=== PATIENT | male | born 1990 | race Caucasian/White ===

== ENCOUNTER 2017-10-22 19:43 | Emergency (ER) | payer OTHER ==
[2017-10-22 20:03] VITALS: BP 122/94; PULSE 76; TEMP 98.4; BMI 34.2
--- NOTE | 2017-10-22 20:11 | PDOC ---
History of Present Illness - General Chief Complaint: Pain Stated Complaint: ABDOMINAL PAIN Time Seen by Provider: 10/22/17 20:10 History Source: Patient Exam Limitations: No Limitations - History of Present Illness Initial Comments: 10/22/17 20:53 27M denies PMH presents to the ER with a 2 month history of vague RLQ pain radiating to the right groin and testicle. He states for the past 2 days the pain was constant where as before it was intermittent. He describes the pain like he was hit in the testicles. He gets occasional nausea when brushing his teeth but otherwise denies nausea vomiting fever chills chest pain or shortness of breath. He feels his heart skip a beat from time to time but he denies chest pain. He states he had a right inguinal hernia repair as a . He states sometimes the pain in his right testicle will radiate up the groin to the RLQ. He denies dysuria hematuria or discharge. He denies more than one sex partner but believes his ex girlfriend cheated on him. He denies having sex with men. He denies anal penetration. He denies pain on defecation. He was recently treated for GC/Chlamydia 2 weeks ago although he did not have any symptoms he was informed his ex girlfriend was treated so he sought treatment. He states he received a "shot" and pills. Past History - Travel Traveled outside of the country in the last 30 days: No Close contact w/someone who was outside of country & ill: No - Past Medical History Allergies/Adverse Reactions: Allergies Allergy/AdvReac Type Severity Reaction Status Date / Time No Known Allergies Allergy Verified 10/22/17 19:58 COPD: No - Immunization History Immunization Up to Date: No - Suicide/Smoking/Psychosocial Hx Have you smoked in the past 12 months: No Number of Cigarettes Smoked Daily: 0 Information on smoking cessation initiated: No Hx Alcohol Use: No Drug/Substance Use Hx: No Substance Use Type: Marijuana (daily) Review of Systems - Review of Systems Constitutional: No: Symptoms Reported, See HPI, Chills, Diaphoresis, Fever, Loss of Appetite, Malaise, Night Sweats, Weakness, Weight Stable, Unintentional Wgt. Loss, Unexplained wgt Loss, Other HEENTM: No: Symptoms Reported, See HPI, Eye Pain, Blurred Vision, Tearing, Recent change in vision, Double Vision, Cataracts, Ear Pain, Ocular Prothesis, Ear Discharge, Nose Pain, Nose Congestion, Tinnitus, Nose Bleeding, Hearing Loss , Throat Pain, Throat Swelling, Mouth Pain, Dental Problems, Difficulty Swallowing, Mouth Swelling, Other Respiratory: No: Symptoms reported, See HPI, Cough, Orthopnea, Shortness of Breath, SOB with Exertion, SOB at Rest, Stridor, Wheezing, Productive cough, Hemoptysis, Other Cardiac (ROS): Yes: Other (occasional heart skipping a beat) ABD/GI: Yes: See HPI : Yes: See HPI, Testicular Pain (right sided). No: Burning, Dysuria, Discharge, Frequency, Urgency, Testicular Mass Musculoskeletal: No: Symptoms Reported, See HPI, Back Pain, Gout, Joint Pain, Joint Swelling, Muscle Pain, Muscle Weakness, Neck Pain, Joint Stiffness, Other Integumentary: No: Symptoms Reported, See HPI, Bruising, Change in Color, Change in Hair/Nails, Dryness, Erythema, Flushing, Lesions, Lumps, Pallor, Pruritus, Rash, Sweating, Other Neurological: No: Symptoms reported, See HPI, Headache, Numbness, Paresthesia, Pre-Existing Deficit, Seizure, Tingling, Tremors, Weakness, Unsteady Gait, Ataxia, Dizziness, Other Psychiatric: No: Anxiety, Depression, Frequent Crying, Stressors, Sleep Pattern Change, Emotional Problems, Mood Swings, Change in Appetite, Other Endocrine: No: Symptoms Reported, See HPI, Excessive Sweating, Flushing, Intolerance to Cold, Intolerance to Heat, Increased Hunger, Increased Thirst, Increased Urine, Unexplained Weight Gain, Unexplained Weight Loss, Change in Weight, Other Hematologic/Lymphatic: No: Symptoms Reported, See HPI, Anemia, Blood Clots, Easy Bleeding, Easy Bruising, Bleeding Diathesis, Lymph Node Abnormalities, Swollen Glands, Other *Physical Exam - Vital Signs Last Vital Signs Temp Pulse Resp BP Pulse Ox 98.4 F 76 16 122/94 100 10/22/17 19:58 10/22/17 19:58 10/22/17 19:58 10/22/17 19:58 10/22/17 19:58 - Physical Exam General Appearance: Yes: Nourished, Appropriately Dressed. No: Apparent Distress HEENT: positive: EOMI, HARJINDER, Normal ENT Inspection Neck: positive: Trachea midline, Supple Respiratory/Chest: positive: Lungs Clear, Normal Breath Sounds. negative: Chest Tender, Respiratory Distress Cardiovascular: positive: Regular Rhythm, Regular Rate, S1, S2. negative: Edema , JVD, Murmur Gastrointestinal/Abdominal: positive: Soft. negative: Tender, Tenderness, Hernia, Mass Male Genitalia: positive: normal genitalia, other (slightly erythematous at the urethral orifice. no inguinal hernia appreciated but tender when doing the exam when sticking finger into the ring.). negative: discharge, testicular tenderness, epididymus tender Musculoskeletal: negative: CVA Tenderness Extremity: positive: Normal Capillary Refill Integumentary: positive: Dry, Warm Neurologic: positive: tight cooper II-XII NML intact, Fully Oriented, Alert, Normal Mood/ Affect, Normal Response, Motor Strength 07/02 ED Treatment Course - LABORATORY CBC & Chemistry Diagram: 10/22/17 20:30 10/22/17 20:30 Medical Decision Making - Medical Decision Making 10/22/17 21:23 27M with no PMH presents to the ER with right groin pain affecting his RLQ and right testicle. Concern for UTI vs epydidymitis vs inguinal hernia Will do: CBC CMP Mg Lipase UA UCx GC/Chlamydia IVF Reassess *DC/Admit/Observation/Transfer Diagnosis at time of Disposition: Testicular pain, right - Discharge Dispostion Disposition: HOME Condition at time of disposition: Stable Decision to Admit order: No - Referrals Referrals: Abraham Oh MD., MD [Staff Physician] - Call tomorrow - Patient Instructions Printed Discharge Instructions: DI for Testicular Pain, Testicular Self-Exam ( ALEXIS) Additional Instructions: if your pain gets worse go back to the nearest emergency room see the urologist and call for an appointment. If you start to have nausea vomiting fever or chills go to the nearest emergency room. Take Motrin or advil 600mg by mouth every 6 hours as needed for pain. If you need a primary care doctor you can come see me at [address] [place] [address] call [phone] and make an appointment with Dr. Diaz i see patients every from 1-430. - Post Discharge Activity
--- NOTE | 2017-10-22 20:15 | PDOC ---
Attending Attestation - HPI HPI: 10/22/17 22:20 The patient is a 27 year old male, with no significant past medical history, who presents to the emergency department with, 2 months of right lower quadrant and right groin pain. As per patient, his pain initially was intermittent then over the past 2 days it has become progressively constant. As per patient, he was recently treated for Chlamydia 2 weeks ago. He reports to have been asymptomatic but, was made aware that his previous sexual partner was tested positive. He reports since taking the treatment his pain has become more constant. He denies any recent fevers, chills, headache or dizziness. He denies any recent nausea, vomit, diarrhea or constipation. He denies any recent chest pain or shortness of breath. He denies any recent dysuria, frequency, urgency or hematuria. Allergies: NKA - Physicial Exam PE: 10/22/17 22:21 GENERAL: Awake, alert, and fully oriented, in no acute distress HEAD: No signs of trauma NECK: Normal ROM, supple, no lymphadenopathy, JVD, or masses LUNGS: Breath sounds equal, clear to auscultation bilaterally. No wheezes, and no crackles HEART: Regular rate and rhythm, normal S1 and S2, no murmurs, rubs or gallops +ABDOMEN: Gassy bowel sounds. Soft, nontender. No guarding, no rebound. No masses EXTREMITIES: Normal range of motion, no edema. No clubbing or cyanosis. No cords, erythema, or tenderness NEUROLOGICAL: Cranial nerves II through XII grossly intact. Normal speech, normal gait SKIN: Warm, Dry, normal turgor, no rashes or lesions noted. <Marco Higginbotham - Last Filed: 10/22/17 22:20> - Resident Resident Name: Janes Diaz - ED Attending Attestation I have performed the following: I have examined & evaluated the patient, The case was reviewed & discussed with the resident, I agree w/resident's findings & plan - HPI HPI: 10/22/17 20:45 Pt comes with - Medical Decision Making 10/22/17 22:41 Pt states that he has right testicle pain ongoing for couple weeks. He has no to Patient Name: JACQUELINE COLON THIS IS A PRELIMINARY REPORT FROM [facility] DATE OF SERVICE: 2017-10-22 21:29:31 IMAGES: 54 EXAM: Bilateral scrotal sonogram. Clinical indication: Testicular pain. Rule out inguinal hernia. There are no prior studies available for comparison. Findings: The right testicle measures 4.3 x 3.2 x 2.0 cm in diameter and has an unremarkable sonographic appearance without focal abnormality. There is normal color Doppler flow within the right testicle. There is a small 0.5 cm simple epididymal cyst within the head of the right epididymis. The right epididymis is otherwise unremarkable. There is trace of right-sided hydrocele. There is some sonographically normal-appearing lymph nodes within the right inguinal region. The left testicle measures 4.8 x 3.5 x 2.1 cm in diameter and has an unremarkable sonographic appearance without focal abnormality. Color Doppler flow is normal within the left testicle. The left epididymis is within normal limits. There is a tiny left-sided hydrocele. The sales warehouse driver has not commented on the presence or absence of inguinal hernia. There are no images to suggest that evaluation was performed for inguinal hernia. It should be noted that a sonogram for evaluation of hernia is separate from a scrotal sonogram. Impression: 1. Tiny bilateral hydroceles. Otherwise unremarkable bilateral scrotal sonogram. 2. There are no images to suggest evaluation was performed for inguinal hernias. It should be noted that a sonogram for evaluation of hernias is usually performed separate from a scrotal sonogram. THIS DOCUMENT HAS BEEN ELECTRONICALLY SIGNEDrsion; he has no 10/23/17 00:32 Pt has no testicular pain; no torsion; he has no ingunal hernia that I could appreciate. Pt was reassured and asked to follow with urology as an outpatient. He understands that he can return for worsening pain. <Teresa Obregon - Last Filed: 10/23/17 00:32> Attestations - Attestations 10/22/17 22:21 Documentation prepared by Marco Higginbotham, acting as medical assistant ob gyn for Teresa Obregon MD. <Marco Higginbotham - Last Filed: 10/22/17 22:20>
[2017-10-22] MEDS ORDERED: SODIUM CHLORIDE 1,000 ML IV STA (20:16)
[2017-10-22 20:38] LABS: BASO % 0.9 % (0-2.0); EOS % 1.3 % (0-4.5); HEMATOCRIT 44.1 % (35.4-49); HEMOGLOBIN 14.9 GM/dL (11.7-16.9); LYMPH % 24.3 % (8-40); MCH 31.3 pg (25.7-33.7); MCHC 33.7 g/dl (32.0-35.9); MEAN CELL VOLUME 92.8 fl (80-96); MEAN PLT VOLUME 6.7 fl (7.5-11.1); MONO % 11.3 % (3.8-10.2); NEUT % 62.2 % (42.8-82.8); PLATELET COUNT 248 K/MM3 (134-434); RBC 4.75 M/mm3 (4.00-5.60); RDW 12.8 % (11.9-15.9); WHITE BLOOD COUNT 8.5 K/mm3 (4.0-10.0)
[2017-10-22 20:46] LABS: INR 0.93 (0.83-1.09); PROTHROMBIN TIME (PATIENT) 10.5 SEC (9.7-13.0)
[2017-10-22 20:48] LABS: ACTIVATED PTT 36.3 SECONDS (25.2-36.5)
[2017-10-22 20:56] LABS: ALBUMIN 3.8 g/dl (3.4-5.0); ALK PHOS 62 U/L (45-117); ANION GAP 7 MMOL/L (8-16); BILIRUBIN,TOTAL 0.2 mg/dL (0.2-1.0); BLOOD UREA NITROGEN 14 mg/dL (7-18); CALCIUM 9.1 mg/dL (8.5-10.1); CHLORIDE 111 mmol/L (98-107); CO2 26 mmol/L (21-32); CREATININE 0.9 mg/dL (0.7-1.3); GLUCOSE,RANDOM 99 mg/dL (74-106); LIPASE 117 U/L (73-393); MAGNESIUM 2.2 mg/dL (1.8-2.4); POTASSIUM 4.2 mmol/L (3.5-5.1); SGOT/AST 25 U/L (15-37); SGPT/ALT 84 U/L (12-78); SODIUM 144 mmol/L (136-145); TOT PROT 6.4 g/dl (6.4-8.2)
[2017-10-22 21:10] LABS: URINE APPEARANCE CLEAR; URINE BILIRUBIN NEGATIVE (<2.0 mg/dL); URINE COLOR YELLOW; URINE GLUCOSE (UA) NEGATIVE (NEGATIVE); URINE KETONE NEGATIVE (NEGATIVE); URINE LEUK ESTERASE NEGATIVE (NEGATIVE); URINE NITRITE NEGATIVE (NEGATIVE); URINE PROTEIN NEGATIVE (NEGATIVE); URINE UROBILINOGEN NEGATIVE mg/dL (0.2-1.0)
== END 2017-10-22 23:10 | disposition home or self-care (01) ==
LOC: JER 19:43
PROC: 3E0337Z Introduction of Electrolytic and Water Balance Substance into Peripheral Vein, Percutaneous Approach (ICD-10-PCS; principal; 2017-10-22)
DX: N50.811 Right testicular pain (principal); Z86.19 Personal history of other infectious and parasitic diseases
CPT/HCPCS: 36415; 76870-TC; 80053; 81003; 83690; 83735; 85025; 85610; 85730; 86850; 86900; 86901; 87086; 87491; 87591; 96360; 99283-25; J7030